=== PATIENT | male | born 1960 | race African-American/Black ===

== ENCOUNTER 2020-12-31 17:10 | Emergency (ER) | payer MEDICAID, OTHER ==
[~2020-12-31] VITALS: Ht 182.9 cm; Wt 91.0 kg
[2020-12-31] MEDS ORDERED: ACETAMINOPHEN 325MG TABLET PO ONE (18:15)
[2020-12-31] MEDS ORDERED: IBUPROFEN 400MG TABLET PO ONE (18:15)
[2020-12-31 19:53] LABS: BASOPHILS % 0.5 % (0.0-2.0); EOSINOPHILS % 7.3 % (0.0-5.0); HEMATOCRIT. 30.8 % (42.0-52.0); HEMOGLOBIN. 10.7 g/dL (14.0-18.0); LYMPHOCYTES % 41.5 % (20.0-50.0); MEAN CORPUSCULAR HEMOGLOBIN 35.6 pg (28.0-32.0); MEAN CORPUSCULAR VOLUME 102.4 fL (80.0-94.0); MEAN PLATELET VOLUME 6.8 fl (7.4-10.4); MONOCYTES % 12.7 % (2.0-8.0); PLATELET 74 x1000/uL (130-400); RED BLOOD CELL COUNT 3.01 mill/uL (4.7-6.1)
[2020-12-31 20:10] VITALS: BP 129/84
[2020-12-31 21:05] LABS: CHLORIDE 107 mEq/L (98-107)
[2020-12-31 21:11] LABS: ETHANOL BLOOD 18 mg/dL
== END 2020-12-31 20:11 | disposition home or self-care (01) ==
LOC: ER 17:10
DX: F10.229 Alcohol dependence with intoxication, unspecified (principal); Y90.0 Blood alcohol level of less than 20 mg/100 ml; M25.512 Pain in left shoulder
CPT/HCPCS: 36415; 80048; 80320; 85025; 99283; G0480